=== PATIENT | female | born 1955 | race Caucasian/White ===

== ENCOUNTER → 2019-04-05 14:34 | Outpatient (CLI) | payer BC, SELFPAY ==
--- NOTE | 2019-04-05 15:26 | US_ITS ---
US breast RT complete MM Dig mamm DX unilat RT CAD INDICATION: six-month follow-up ORDERING PHYSICIAN: Valentin Estrada MD PATIENT AGE: 63 years COMPARISON: 10/26/2018, 10/20/2017, 09/16/2013 TECHNIQUE: Standard images of the right breast along with spot compression views and right breast ultrasound FINDINGS: There is heterogeneous dense fibroglandular tissue decreasing the sensitivity of mammography. A well-circumscribed 15 mm nodule is present in the medial aspect of the right breast. There are other smaller asymmetric densities/benign-appearing nodules.. No malignant appearing mass or malignant appearing microcalcification is evident. Right breast ultrasound: There is a well-circumscribed hypoechoic nodule in the 1:00 region of the right breast measuring 14 x 10 mm corresponding to the mammographic abnormality. This does appear solid with some nodularity along its deep margin. There is some decreased through transmission of sound with some mild heterogeneous echogenicity of the nodule. Margins are however well circumscribed. There is a 5 mm cyst at 9:00. IMPRESSION: 15 mm nodule at 1:00 in the right breast. This appears solid on ultrasound and is likely due to a fibroadenoma. This nodule is stable mammographically dating back to 09/16/2013. FINDINGS are felt to be benign. However, ultrasound-guided biopsy could be performed for peace of mind for the patient if clinically desired. BI-RADS Category: 2 Benign Finding(s) RECOMMENDED FOLLOW-UP: 6M - 6 MONTH FOLLOW-UP (A letter has been sent to the patient regarding results of the study.)
== END ==
PROVIDERS: PCP Family Medicine; Visit Provider Obstetrics & Gynecology
DX: R92.8 Other abnormal and inconclusive findings on diagnostic imaging of breast (principal)
CPT/HCPCS: 76641; 77065

== ENCOUNTER → 2019-10-10 12:27 | Outpatient (CLI) | payer BC, SELFPAY ==
--- NOTE | 2019-10-10 12:28 | MM_ITS ---
PROCEDURE: MM DIG MAMM BI DX W/CAD CLINICAL INDICATION: Dx Bilateral Mammogram Follow-up abnormal mammogram COMPARISON: BREASTRT US breast RT complete from 04/05/2019 DIG MAMM-DX UNI-RT from 04/05/2019 US BREAST LT COMPLETE from 10/10/2019 US BREAST RT COMPLETE from 10/10/2019 TECHNIQUE: Standard CC and MLO images and 3D Tomosynthesis was obtained. R2 CAD reviewed. FINDINGS: There is average fibroglandular tissue. Right mammogram: On the right there is a well-circumscribed 15 x 12 mm nodule in the upper inner aspect of the right breast which is not significantly changed. There are other benign-appearing nodules of the right breast. No suspicious calcifications apparent. Right breast ultrasound: The there is a stable 12 mm hypoechoic nodule at 12/1 o'clock which is well-circumscribed. There is some decreased through transmission of sound. The nodule has a similar appearance compared to the previous study and corresponds to the benign-appearing mammographic nodule. This may represent a fibroadenoma. At 1 o'clock there is a complicated 4 x 3 mm cyst. At 6 o'clock there is a 5 mm subcutaneous cystic lesion. Three mm cyst is noted at 7 o'clock. 5 mm cyst at 9 o'clock. 5 mm cyst at 10 o'clock Left mammogram: There are no previous mammograms made available for comparison of the left breast. According to the prior report of 04/05/2019 there was a previous mammogram compared of 09/16/2013. Addendum will be given once that exam is made available for review. A 7 mm well-circumscribed nodular opacity is present in the retroareolar region as seen on the MLO view. Left breast ultrasound: 5 mm cyst at 12 o'clock, initially there was a hypoechoic nodule noted at 1 o'clock at 8 mm and a heterogeneous echogenic nodule at 3 o'clock at 10 mm. This latter nodule showed some increase echoes. Real-time imaging performed of the 1 o'clock area fails to demonstrate a true nodule. There is a 4 mm cyst at 3 o'clock and 4 mm cyst at 5 o'clock as well as a 5 mm cyst at 6 o'clock with a small dilated duct at that area which may account for the mammographic abnormality. 3 mm cyst at 9 o'clock. Three mm cyst at 11 o'clock IMPRESSION: Overall, the findings are probably benign. There multiple bilateral cysts. A solid-appearing nodules present in the 1 o'clock region of the right breast but has been stable. Will attempt to obtain the films of 2013 to compare and given addendum once those are made available. There was a question of a hypoechoic nodule in the retroareolar region of the left breast. This was not confirmed on additional imaging. Three month sonographic follow-up with radiologist supervision is suggested. BI-RAD Category: 3 Probably Benign Finding Short Term Follow-up FOLLOW-UP: 3M 3 Month Follow-up Also recommend making available the exam of 09/16/2013 for review. (A letter has been sent to the patient regarding results of the study.) Dictated by: Amrik Goncalves MD 10/15/2019 09:55 Electronically signed by Amrik Goncalves MD in [place] 10/15/2019 09:55
== END ==
PROVIDERS: PCP Family Medicine; Visit Provider Obstetrics & Gynecology
DX: R92.8 Other abnormal and inconclusive findings on diagnostic imaging of breast (principal)
CPT/HCPCS: 76641; 77062; 77066; G0279